=== PATIENT | female | born 1975 | race Caucasian/White ===

== ENCOUNTER 2016-11-13 12:45 | Inpatient (IN) | payer MEDICAID ==
[~2016-11-13] VITALS: Ht 154.9 cm; Wt 72.7 kg
[~2016-11-13 12:45] MED LIST: ACET500C5 PO; ASPI-664 PO; FOL8 PO; PRENAT PO
[2016-11-13 14:07] VITALS: Ht 154.9 cm; Wt 72.7 kg
[2016-11-13 14:08] VITALS: BP 120/87; RESP 18
[2016-11-13] MEDS ORDERED: LACTATED RINGER'S 1,000 ML IV SCH (14:26)
[2016-11-13] MEDS ORDERED: OXYTOCIN 30 UNITS/LR 500 ML IV PRN ×2 (14:30→23:00)
[2016-11-13] MEDS ORDERED: MISOPROSTOL 200 MCG TAB PR PRN ×2 (14:30→23:00)
[2016-11-13] MEDS ORDERED: METHYLERGONOVINE 0.2 MG INJ IM PRN ×2 (14:30→23:00)
[2016-11-13] MEDS ORDERED: CEFAZOLIN 2 GM/50 ML (PMX) 50 ML IV SCH (14:30)
[2016-11-13] MEDS ORDERED: CARBOPROST 250 MCG INJ IM PRN ×2 (14:30→23:00)
[2016-11-13] MEDS ORDERED: OXYTOCIN 30 UNITS/LR 500 ML IV SCH (14:30)
[2016-11-13 14:35] LABS: BASOPHILS % 0.5 % (0.0-2.0); EOSINOPHILS # 0.1 10^3/ul (0.0-0.5); EOSINOPHILS % 1.2 % (0.0-7.0); HEMATOCRIT 37.7 % (37.0-47.0); LYMPHOCYTES # 2.5 10^3/ul (0.8-2.9); LYMPHOCYTES % 30.1 % (15.0-51.0); MEAN CORPUSCULAR HEMOGLOBIN 34.1 pg (29.0-33.0); MEAN CORPUSCULAR HGB CONC 34.4 g/dl (32.0-37.0); MEAN CORPUSCULAR VOLUME 99.2 fl (82.0-101.0); MEAN PLATELET VOLUME 7.6 fl (7.4-10.4); MONOCYTE # 0.7 10^3/ul (0.3-0.9); MONOCYTES % 8.1 % (0.0-11.0); NEUTROPHILS % 60.1 % (39.0-77.0); PLATELET COUNT 226 10^3/UL (140-440); RED CELL DISTRIBUTION WIDTH 13.8 % (11.5-14.5); UNCORRECTED WBC 8.3 10^3/ul (4.8-10.8); WHITE BLOOD COUNT 8.3 10^3/ul (4.8-10.8)
[2016-11-13 14:45] LABS: INR 0.86; PROTIME 11.7 Sec (12.2-14.2); PT RATIO 0.9
[2016-11-13 14:46] LABS: ALBUMIN 3.4 g/dl (3.3-4.9); PARTIAL THROMBOPLASTIN TIME 27.4 Sec (25.0-35.0)
[2016-11-13 14:47] LABS: CONDITION 1; POTASSIUM 4.6 mmol/L (3.5-5.1)
[2016-11-13 14:49] LABS: ALBUMIN/GLOBULIN RATIO 0.87; BILIRUBIN,INDIRECT 0.6 mg/dl (0-1.1); BILIRUBIN,TOTAL 0.6 mg/dl (0.2-1.3); CREATININE 0.68 mg/dl (0.44-1.00); TOTAL PROTEIN 7.3 g/dl (6.1-8.1); URIC ACID 4.3 mg/dl (3.1-7.9)
[2016-11-13 14:50] LABS: CALCIUM 9.5 mg/dl (8.4-10.2)
[2016-11-13] MEDS ORDERED: ONDANSETRON 4 MG INJ IV STA (15:59)
[2016-11-13] MEDS ORDERED: CITRIC ACID/NA CITRATE 30 ML CUP PO ONE (16:00)
[2016-11-13] MEDS ORDERED: morphine SULFATE/PF (10 MG/10 ML) INJ ONE (17:04)
[2016-11-13] MEDS ORDERED: OXYTOCIN 10 UNIT INJ ONE ×2 (17:04→18:02)
[2016-11-13] MEDS ORDERED: PHENYLephrine (100 MCG/ML) 5ML SYG ONE (17:28)
[2016-11-13] MEDS ORDERED: DEXAMETHASONE 4 MG/ML 1 ML INJ ONE (17:45)
[2016-11-13] MEDS ORDERED: ONDANSETRON 4 MG INJ ONE (17:45)
[2016-11-13] MEDS ORDERED: KETOROLAC 30 MG INJ ONE (17:45)
[2016-11-13] MEDS ORDERED: METOCLOPRAMIDE 10 MG INJ ONE (17:45)
[2016-11-13] MEDS ORDERED: ACETAMINOPHEN 500 MG TAB PO PRN (18:00)
[2016-11-13] MEDS ORDERED: NALOXONE (0.4 MG/ML) INJ IV PRN (18:00)
[2016-11-13] MEDS ORDERED: METOCLOPRAMIDE 10 MG INJ IV PRN (18:00)
[2016-11-13] MEDS ORDERED: HYDROmorphONE 1 MG/ML SYG IV PRN ×2 (18:00)
[2016-11-13] MEDS ORDERED: morphine (1 MG/ML) 10ML SYRINGE IV PRN ×3 (18:00)
[2016-11-13] MEDS ORDERED: EPHEDrine SULFATE 50 MG/5 ML SYG IV PRN (18:00)
[2016-11-13] MEDS ORDERED: morphine 2 MG INJ IV PRN (18:00)
[2016-11-13] MEDS ORDERED: ALBUMIN HUMAN 5% 250 ML IV PRN (18:00)
[2016-11-13] MEDS ORDERED: morphine 4 MG/ML VIAL IV PRN (18:00)
[2016-11-13] MEDS ORDERED: DIPHENHYDRAMINE 50 MG INJ IV PRN ×2 (18:00)
[2016-11-13] MEDS ORDERED: ONDANSETRON 4 MG INJ IV PRN (18:00)
[2016-11-13] MEDS ORDERED: HYDROCODONE/APAP (5/325) TAB PO PRN (18:00)
[2016-11-13] MEDS ORDERED: MEPERIDINE 25 MG INJ IV PRN (18:00)
[2016-11-13] MEDS ORDERED: HYDROmorphONE (0.2 MG/ML) 10ML SYG IV PRN ×3 (18:00)
--- NOTE | 2016-11-13 18:25 | HP ---
Date/Time of Note Date/Time of Note DATE: 11/13/16 TIME: 18:20 OB - History Hx of Present Free Text/Dictation admitted for repeat C/S at 38 + weeks because of oligohydramnios Last Menstrual Period: February 20, 2016 Estimated Due Date: Nov 26, 2016 : 4 Para: 3 Care: Good Care Ultrasounds: Normal mid trimester US Obstetrical Complications: Other (elevated inhibin and antiphospholipid syndrome on aspirin ) Medical Complications: Other (previous C/S X 1 ) Past Family/Social History * Past Medical, Surgical, Family and Obstetric Histories reviewed from chart. Blood Type: O+ Rubella: immune RPR/VDRL: Negative GBS Status: Negative HBsAG: Negative OB Admission Exam Vital Signs Vital Signs Vital Signs Date Time Temp Pulse Resp B/P Pulse Ox O2 Delivery O2 Flow Rate FiO2 11/13/16 14:08 98.0 18 120/87 Room Air Physical Exam HEENT: WNL Heart: Rhythm Normal Lungs: Clear, Equal Abdomen: WNL Extremities: Normal Reflexes: Normal Cervical Dilatation: None Effacement: 0% Station: -3 Membranes: Intact Heart Rate: 150's Accelerations: Accelerations Present Decelerations: No Decelerations Varibility: Moderate Contractions on Admission: None Last 72 hours Lab Results CBC & BMP 11/13/16 14:15 Liver Function Test 11/13/16 14:15 Alanine Aminotransferase (ALT/SGPT) 25 Albumin 3.4 Alkaline Phosphatase 257 H Aspartate Amino Transf (AST/SGOT) 26 Direct Bilirubin 0.00 Total Protein 7.3 OB Assessment/Plan Other Assessment: term gestation Oligohydramnios previous C.S X 1 desires sterilization Other plan: repeat C/S + BTL SHARMILA VARGAS MD Nov 13, 2016 18:25
--- NOTE | 2016-11-13 18:28 | OPR ---
Operative Report Planned Procedure Procedure date Nov 13, 2016 Procedure(s) repeat C/S and BTL Performed by: SHARMILA VARGAS MD Assisting provider: CAREY TOVAR MD Anesthesiologist: NAEEM BARRETT MD Pre-procedure diagnosis term gestation previous C/S x 1 desires sterilization Anesthesia Type: spinal Procedure Description Under satisfactory anaesthesia a Pfannenstiel incision was made two fingerbreadth above and parallel to the symphysis of pubis around the previous scar and previous scar was removed Incision was extended laterally to the border of the Recti muscles on either sides. Incision was carried down with sharp and blunt dissection until fascia was reached. Anterior Recti muscle fascia was incised in mid portion and incision extended laterally to the border of skin incision. Fascia was mobilized from muscle superiorly and Recti muscles were from midline using sharp and blunt dissection. Peritoneum was visualized; Avoiding bowel and bladder it was incised . Incision was extended superiorly and inferiorly. Bladder blade was placed. Posterior peritoneum covering the lower segment of the uterus and lower segment of the uterus were incised.Low transverse uterine incision was made on lower segment of the uterus. Incision extended laterally to the border of Round Lig. on either sides and baby was delivered from OT. position . Amniotic fluid appeared clear. Cord blood was obtained and cord had 3 vessels . Placenta was delivered spontaneously and appeared intact and complete. Intrauterine cavity was rubbed with a laparotomy sponge. Uterine incision was closed in 2 layers using running stitches of No1 Monocryl. Hemostasis appeared secure. Ovaries and Fallopian tubes were within normal limits. Bilateral Tubal Ligation was performed by following procedure: R fallopian tube was raised in mid portion; a Jesika clamp was placed below the fimbriae extending to proximal portion of the fallopian tube. Another clamp was placed parallel to the first and after incising the fallopian tube the stump was sutured using 0 Vicryl stitch. Hemostasis was secure . Same procedure was done on fallopian tube on the opposite side. Hemostasis appeared to be secure on ligated sites of either fallopian tubes. Announcing needle, lap sponge and instrument count to be correct abdomen was closed in layers as follows: Peritoneum and Recti muscles with running stitches of 20 Vicryl. Fascia with running stitch of No 1 PDS. Subcutaneous tissue with running stitches of 20 Chromic and skin was closed using flor. Patient tolerated the procedure well and was transferred to [facility] in good condition. Post-Procedure Post-procedure diagnosis reepat C/S + BTL Findings: Live Baby Specimen removed: Yes Specimen description segments of R and L fallopian tube Complications: None Pt Condition post procedure: stable Disposition: PACU Physician Certification I, the undersigned physician, hereby certify that I have discussed the procedure described in this consent form with this patient (or the patient's legal medical claims representative), including: * The risk and benefits of the procedure; * Any adverse reactions that may reasonably be expected to occur; * Any alternative efficacious methods of treatment which may be medically viable ; * The potential problems that may occur during recuperation; * Potential for blood transfusion and associated risks/benefits; and * Any research or economic interest I may have regarding this treatment. I further certify that the patient/legally responsible person was encouraged to ask question and that all questions were answered. SHARMILA VARGAS MD Nov 13, 2016 18:28
[2016-11-13] MEDS: KETOROLAC 30 MG INJ IV PRN (20:12)
--- NOTE | 2016-11-13 21:19 | DELSUM ---
Delivery Summary A-C Datetime Report Generated by CPN: 11/13/2016 21:18 DELIVERY PERSONNEL Benefits Technician: Jennifer, Caitlin MATERNAL INFORMATION Delivery Anesthesia: Spinal Medications in Delivery: SEE ANETHESIOLOGY NOTES Estimated Blood Loss (ml): 500 Placenta Cultured: No Maternal Complications: None LABOR SUMMARY EDC: 11/26/2016 00:00 No. Babies in Womb: 1 Attempted: No Labor Anesthesia: None LABOR INFORMATION Reason for Induction: Not Applicable Cervical Ripening Agents: Cervidil Oxytocin: N/A Group B Beta Strep: Negative Antibiotics # of Doses: 1 Antibiotics Time of Last Dose: 1714 Steroids Given: None Reason Steroids Not Administered: Not Applicable MEMBRANES Membranes Rupture Method: Artificial Rupture of Membranes: 11/13/2016 17:43 Length of Rupture (hr): 0.02 Amniotic Fluid Color: Clear Amniotic Fluid Amount: Small Amniotic Fluid Odor: Normal STAGES OF LABOR Stage 3 hr: 0 Stage 3 min: 2 CSECTION DELIVERY Primary Indication: Repeat Elective Other Primary Indication: REPEAT Secondary Indication: Repeat Elective CSection Urgency: Elective CSection Incidence: Repeat Labor: No Labor Elective: Elective CSection Incision: Lower Uterine Transverse Sterilization Procedure: [place] BABY A INFORMATION Delivery Date/Time: 11/13/2016 17:44 Method of Delivery: Born in Route : No : N/A Forceps: N/A Vacuum Extraction: N/A Shoulder Dystocia : No SHOULDER DYSTOCIA BABY A Delivery Date/Time: 11/13/2016 17:44 PRESENTATION/POSITION BABY A Presentation: Cephalic Cephalic Presentation: Vertex Vertex Position: Left Occipital Anterior Breech Presentation: N/A PLACENTA INFORMATION BABY A Placenta Delivery Time : 11/13/2016 17:46 Placenta Method of Delivery: Manual Removal Placenta Status: Delivered SCORES BABY A Heart Rate 1 min: >100 bpm Resp Effort 1 min: Good Cry Reflex Irritability 1 min: Cough/Sneeze/Pulls Away Muscle Tone 1 min: Active Motion Color 1 min: Blue/Pale Resuscitation Effort 1 min: Tactile Stimulation SCORE 1 MIN: 8 Heart Rate 5 min: >100 bpm Resp Effort 5 min: Good Cry Reflex Irritability 5 min: Cough/Sneeze/Pulls Away Muscle Tone 5 min: Active Motion Color 5 min: Body [place], Extremit Blue Resuscitation Effort 5 min: Tactile Stimulation SCORE 5 MIN: 9 INFORMATION BABY A Gestational Age at Delivery: 38.1 Gestational Status: Early Term- 37- 38.6 Weeks Outcome : Liveborn Condition : Stable Sex: Female IDENTIFICATION/MEDS BABY A ID Band Location: Right Leg; Left Arm Sensor Applied: Yes Sensor Number: [id number] Sensor Location : Cord Clamp Vitamin K Given : Not Given Erythromycin Given: Not Given WEIGHT/LENGTH BABY A Birthweight (gm): 2955 Infant Weight (lb): 6 Infant Weight (oz): 8 Infant Length (in): 18.00 Length (cm): 45.72 CORD INFORMATION BABY A No. Cord Vessels: 3 Nuchal Cord : N/A Cord Blood Taken: Yes Infant Suction: Mouth; Nose ASSESSMENT BABY A Infant Complications: None Physical Findings at Delivery: Within Normal Limits Respirations: Appears Normal Counter Pocket Sewer/ALS Called : No Care By: DERECK STANTON Transferred To: Remains with Mother
[2016-11-13 22:25] VITALS: BP 106/69; PULSE 62
[2016-11-13 22:40] VITALS: BP 115/67; PULSE 66
[2016-11-13] MEDS ORDERED: OXYCODONE/ACETAMINOPHEN (5/325) TAB PO PRN (23:00)
[2016-11-13] MEDS ORDERED: ACETAMINOPHEN/CODEINE #3 TAB PO PRN (23:00)
[2016-11-13] MEDS ORDERED: LANOLIN 7 GM TUBE TOP PRN (23:00)
[2016-11-13] MEDS ORDERED: NA PHOSPHATE/BIPHOS 133 ML ENEMA PR PRN (23:00)
[2016-11-14] MEDS: CEFAZOLIN 2 GM/50 ML (PMX) 50 ML IV SCH ×3 (00:44→16:19)
[2016-11-14] MEDS: CLINDAMYCIN 300 MG CAP PO SCH ×5 (00:49→23:40)
[2016-11-14] MEDS: LACTATED RINGER'S 1,000 ML IV SCH ×4 (00:49→22:49)
--- NOTE | 2016-11-14 01:46 | CONS ---
Date/Time of Note Date/Time of Note DATE: 11/14/16 TIME: 01:44 Consultation Date/Type/Reason Admit Date/Time Nov 13, 2016 at 12:45 Initial Consult Date 11/13/16 Type of Consultation: Anesthesia Reason for Consultation Repeat 24 HR Interval Summary Free Text/Dictation Patient is a 41 year old female went under Spinal Anesthesia for repeat C- Section. Intrathecal Duramorph was given for post op pain control. Patient is doing well, vital signs are stable afebrile. Pain is well controlled, no nausea nor vomiting or itching noted. no apnea reported. No sensory or motor loss noted. Patient will be followed up by her primary team. Exam/Review of Systems Vital Signs Vitals Vital Signs Date Time Temp Pulse Resp B/P Pulse Ox O2 Delivery O2 Flow Rate FiO2 11/13/16 23:25 98 21 11/13/16 22:40 98.2 66 115/67 Room Air 11/13/16 14:08 18 Intake and Output 11/13/16 11/13/16 11/14/16 15:00 23:00 07:00 Intake Total 175 ml Output Total 1200 ml Balance -1025 ml Results Result Diagram: 11/13/16 1415 11/13/16 1415 Results 24 hrs Laboratory Tests Test 11/13/16 14:15 Activated Partial Thromboplast Time 27.4 Alanine Aminotransferase (ALT/SGPT) 25 Albumin 3.4 Albumin/Globulin Ratio 0.87 Alkaline Phosphatase 257 H Anion Gap 14 Aspartate Amino Transf (AST/SGOT) 26 Basophils # 0.0 Basophils % 0.5 Blood Urea Nitrogen 14 Calcium Level 9.5 Carbon Dioxide Level 23 Chloride Level 106 Creatinine 0.68 Direct Bilirubin 0.00 Eosinophils # 0.1 Eosinophils % 1.2 Globulin 3.90 H Glucose Level 75 Hematocrit 37.7 # Hemoglobin 13.0 # INR International Normalized Ratio 0.86 Indirect Bilirubin 0.6 Lymphocytes # 2.5 Lymphocytes % 30.1 Mean Corpuscular Hemoglobin 34.1 H Mean Corpuscular Hemoglobin Concent 34.4 Mean Corpuscular Volume 99.2 Mean Platelet Volume 7.6 Monocytes # 0.7 Monocytes % 8.1 Neutrophils # 5.0 Neutrophils % 60.1 Nucleated Red Blood Cells # 0.0 Nucleated Red Blood Cells % 0.0 Platelet Count 226 Potassium Level 4.6 Prothrombin Time 11.7 L Prothrombin Time Ratio 0.9 Rapid Plasma Reagin NONREACTIVE Red Blood Count 3.80 #L Red Cell Distribution Width 13.8 Sodium Level 138 Total Bilirubin 0.6 Total Protein 7.3 Uric Acid 4.3 White Blood Count 8.3 Medications Medications Current Medications Hydromorphone HCl (Dilaudid) 0.2 mg Q2H PRN IV PAIN LEVEL 1-5; Start 11/13/16 at 18:00 Hydromorphone HCl (Dilaudid) 0.4 mg Q2H PRN IV PAIN LEVEL 6-10; Start 11/13/16 at 18:00 Morphine Sulfate (morphine) 2 mg Q2H PRN IV PAIN LEVEL 1-5; Start 11/13/16 at 18:00 Morphine Sulfate (morphine) 4 mg Q2H PRN IV PAIN LEVEL 6-10; Start 11/13/16 at 18:00 Ketorolac Tromethamine (Toradol) 30 mg Q6H PRN IV PAIN LEVEL 6-10 Last administered on 11/13/16 20:12; Admin Dose 30 MG; Start 11/13/16 at 18:00; Stop 11/16/16 at 17:59 Diphenhydramine HCl (Benadryl) 25 mg Q4H PRN IV PRURITUS; Start 11/13/16 at 18: 00 Naloxone HCl 0.2 mg 0.2 mg Q2M PRN IV FOR RESP RATE 8 OR LESS; Start 11/13/16 at 18:00 Lactated Ringer's 1,000 ml @ 125 mls/hr Q8H IV Last administered on 11/14/16 00:49; Admin Dose 125 MLS/HR; Start 11/13/16 at 22:49 Cefazolin Sodium/ Dextrose (Ancef 2 Gm/50 ml (Pmx)) 50 ml @ 100 mls/hr Q8H IV Last administered on 11/14/16 00:44; Admin Dose 100 MLS/HR; Start 11/13/16 at 23:00; Stop 11/14/16 at 15:29 Ibuprofen (Motrin) 800 mg Q8 PO ; Start 11/14/16 at 22:00 Simethicone (Mylicon) 160 mg Q8H PRN PO DISTENSION/GAS/BLOATING; Start at 23:00 Senna/Docusate Sodium (Senokot-S) 1 tab BID PO ; Start 11/14/16 at 09:00 Sodium Biphosphate/ Sodium Phosphate (Fleet Enema) 133 ml DAILY PRN SD CONSTIPATION; Start 11/13/16 at 23:00 Diphtheria/ Tetanus/Acell Pertussis (Adacel) 0.5 ml ONCE ONCE IM* ; Start at 09:00; Stop 11/16/16 at 09:01 Measles/Mumps/ Rubella Vaccine Live 0.5 ml 0.5 ml ONCE ONCE SC* ; Start at 09:00; Stop 11/16/16 at 09:01 Oxytocin/Lactated Ringer's 500 ml @ 0 mls/hr ONCE PRN IV For Hemorrhage Management; Start 11/13/16 at 23:00 Methylergonovine Maleate (Methergine) 0.2 mg ONCE PRN IM VAGINAL BLEEDING; Start 11/13/16 at 23:00 Carboprost Tromethamine (Hemabate) 250 mcg ONCE PRN IM VAGINAL BLEEDING; Start 11/13/16 at 23:00 Misoprostol (Cytotec) 1,000 mcg ONCE PRN SD VAGINAL BLEEDING; Start 11/13/16 at 23:00 Acetaminophen/ Codeine Phosphate (Tylenol No.3) 2 tab Q4H PRN PO PAIN LEVEL 1-5 ; Start 11/13/16 at 23:00 Oxycodone/ Acetaminophen (Percocet (5/ 325)) 2 tab Q4H PRN PO PAIN LEVEL 6-10; Start 11/13/16 at 23:00 Clindamycin HCl (Cleocin) 300 mg Q6 PO Last administered on 11/14/16t 00:49; Admin Dose 300 MG; Start 11/14/16 at 00:00 Bisacodyl (Dulcolax Supp) 10 mg ONCE ONCE SD ; Start 11/14/16 at 11:00; Stop at 11:01 NAEEM BARRETT MD Nov 14, 2016 01:46
[2016-11-14 04:00] VITALS: BP 108/65; PULSE 68; RESP 18
[2016-11-14 07:45] VITALS: BP 114/66; PULSE 60; RESP 16
[2016-11-14 08:22] LABS: BASOPHILS % 0.2 % (0.0-2.0); HEMATOCRIT 32.5 % (37.0-47.0); HEMOGLOBIN 11.2 g/dl (12.0-16.0); LYMPHOCYTES # 3.4 10^3/ul (0.8-2.9); LYMPHOCYTES % 21.9 % (15.0-51.0); MEAN CORPUSCULAR HEMOGLOBIN 34.6 pg (29.0-33.0); MEAN CORPUSCULAR HGB CONC 34.6 g/dl (32.0-37.0); MEAN PLATELET VOLUME 7.9 fl (7.4-10.4); MONOCYTE # 0.8 10^3/ul (0.3-0.9); MONOCYTES % 5.2 % (0.0-11.0); NEUTROPHIL # 11.1 10^3/ul (1.6-7.5); NEUTROPHILS % 72.7 % (39.0-77.0); PLATELET COUNT 185 10^3/UL (140-440); RED BLOOD COUNT 3.25 10^6/ul (4.20-5.40); RED CELL DISTRIBUTION WIDTH 13.5 % (11.5-14.5); UNCORRECTED WBC 15.3 10^3/ul (4.8-10.8); WHITE BLOOD COUNT 15.3 10^3/ul (4.8-10.8)
[2016-11-14 08:34] LABS: CONDITION 1
[2016-11-14] MEDS: SENNA/DOCUSATE NA (8.6MG/50MG) TAB PO SCH ×2 (09:01→21:07)
[2016-11-14] MEDS ORDERED: BISACODYL 10 MG SUPP PR ONE (11:00)
[2016-11-14] MEDS: KETOROLAC 30 MG INJ IV PRN ×2 (11:29→17:29)
[2016-11-14 11:30] VITALS: BP 105/62; PULSE 68; RESP 18
[2016-11-14 16:00] VITALS: BP 108/69; PULSE 70; RESP 16
[2016-11-14 20:10] VITALS: BP 100/64; PULSE 73; RESP 18
[2016-11-14] MEDS: IBUPROFEN 800 MG TAB PO SCH (23:32)
--- NOTE | 2016-11-14 23:48 | PN ---
Date/Time of Note Date/Time of Note DATE: 11/14/16 TIME: 23:46 Assessment/Plan VTE Prophylaxis VTE Prophylaxis Intervention: ambulation Lines/Catheters IV Catheter Type (from Nrs): Peripheral IV Assessment/Plan Assessment/Plan POD # 1 S/P C/S and BTL will advance diet and ambulate Subjective 24 Hr Interval Summary No BM passing flatus Exam/Review of Systems Vital Signs Vitals Vital Signs Date Time Temp Pulse Resp B/P Pulse Ox O2 Delivery O2 Flow Rate FiO2 11/14/16 20:10 98.0 73 18 100/64 Room Air 11/14/16 12:48 97 21 Intake and Output 11/13/16 11/13/16 11/14/16 15:00 23:00 07:00 Intake Total 175 ml 425 ml Output Total 1400 ml 300 ml Balance -1225 ml 125 ml Exam Free Text/Dictation VSS general P/E is WNL abdomen: soft BS + Incision : covered Results Result Diagram: 11/14/16 0725 11/13/16 1415 SHARMILA VARGAS MD Nov 14, 2016 23:48
[2016-11-15 03:54] VITALS: BP 106/70; PULSE 61; RESP 16
[2016-11-15] MEDS: CLINDAMYCIN 300 MG CAP PO SCH ×3 (05:47→18:51)
[2016-11-15] MEDS: IBUPROFEN 800 MG TAB PO SCH ×3 (05:47→21:25)
[2016-11-15] MEDS: LACTATED RINGER'S 1,000 ML IV SCH ×3 (06:49→22:49)
[2016-11-15 08:10] VITALS: BP 115/71; PULSE 65; RESP 16
[2016-11-15 08:16] LABS: BASOPHILS % 0.2 % (0.0-2.0); EOSINOPHILS # 0.1 10^3/ul (0.0-0.5); EOSINOPHILS % 0.8 % (0.0-7.0); HEMATOCRIT 29.9 % (37.0-47.0); HEMOGLOBIN 10.3 g/dl (12.0-16.0); LYMPHOCYTES # 2.9 10^3/ul (0.8-2.9); LYMPHOCYTES % 28.9 % (15.0-51.0); MEAN CORPUSCULAR HEMOGLOBIN 34.7 pg (29.0-33.0); MEAN CORPUSCULAR HGB CONC 34.2 g/dl (32.0-37.0); MEAN CORPUSCULAR VOLUME 101.3 fl (82.0-101.0); MEAN PLATELET VOLUME 7.5 fl (7.4-10.4); MONOCYTE # 0.7 10^3/ul (0.3-0.9); MONOCYTES % 6.5 % (0.0-11.0); NEUTROPHIL # 6.4 10^3/ul (1.6-7.5); NEUTROPHILS % 63.6 % (39.0-77.0); PLATELET COUNT 183 10^3/UL (140-440); RED BLOOD COUNT 2.96 10^6/ul (4.20-5.40); RED CELL DISTRIBUTION WIDTH 13.9 % (11.5-14.5); UNCORRECTED WBC 10.1 10^3/ul (4.8-10.8); WHITE BLOOD COUNT 10.1 10^3/ul (4.8-10.8)
[2016-11-15 08:41] LABS: CONDITION 1; LH ANALYZER COMMENTS 1
[2016-11-15] MEDS ORDERED: INFLUENZA VIRUS VACCINE 0.5 ML (DISPENSING) IM* ONE (09:00)
[2016-11-15] MEDS: SENNA/DOCUSATE NA (8.6MG/50MG) TAB PO SCH ×2 (09:19→21:25)
[2016-11-15 15:50] VITALS: BP 121/85; PULSE 65; RESP 16
--- NOTE | 2016-11-15 18:47 | DS ---
Date/Time of Note Date/Time of Note home next day DATE: 11/15/16 TIME: 18:45 Obstetrical Discharge Record Final Diagnosis Final Diagnosis: Term delivered Other Final Diagnosis S/P C/S + BTL Vaginal Delivery Obstetrical Delivery: Bilateral Tubal Ligation Section Section: Repeat Condition on Discharge Physical Assessment Voiding: Yes Bowel Movement: Yes Breast: Soft, non-tender, Filling Fundus: Firm Abdomen and Incision: soft BS + Incision: healing well Episiotomy: NA Calf Tenderness: No Patient Condition: Good SHARMILA VARGAS MD Nov 15, 2016 18:47
--- NOTE | 2016-11-15 18:49 | DS ---
Date/Time of Note Date/Time of Note DATE: 11/15/16 TIME: 18:47 Discharge Summary Admission/Discharge Info Admit Date/Time Nov 13, 2016 at 12:45 Discharge Date/Time 11/16/2016 Final Diagnosis S/P C/ S+ BTL Procedures repeat C/S and BTL Hx of Present Illness 41 y/o female underwent repeat C/S + BTL Hospital Course uncomplicated Home Meds Active Scripts Acetaminophen* (Tylophen*) 500 Mg Capsule, 1 CAP PO Q6H Y for PAIN AND OR ELEVATED TEMP, #20 CAP Prov:KAILEY STEWART PA-C 08/08/16 Reported Medications Folic Acid* (Folic Acid*) 0.8 Mg Tablet, 0.8 MG PO DAILY, TAB 08/08/16 Aspirin* (Aspirin* EC) 81 Mg Tablet.dr, 81 MG PO DAILY, TAB 08/08/16 Multivit/Min/Fol Ac/Iron/Pren* ( S*) 1 Tab Tab, 1 TAB PO DAILY, TAB 08/08/16 Follow-up Plan 4 days in clinic for staple removal Pending Labs Laboratory Tests Test 11/15/16 07:16 Basophils # 0.010^3/ul (0.0-0.1) Basophils % 0.2% (0.0-2.0) Blood Morphology Comment Eosinophils # 0.110^3/ul (0.0-0.5) Eosinophils % 0.8% (0.0-7.0) Hematocrit 29.9% (37.0-47.0) Hemoglobin 10.3g/dl (12.0-16.0) Lymphocytes # 2.910^3/ul (0.8-2.9) Lymphocytes % 28.9% (15.0-51.0) Mean Corpuscular Hemoglobin 34.7pg (29.0-33.0) Mean Corpuscular Hemoglobin Concent 34.2g/dl (32.0-37.0) Mean Corpuscular Volume 101.3fl (82.0-101.0) Mean Platelet Volume 7.5fl (7.4-10.4) Monocytes # 0.710^3/ul (0.3-0.9) Monocytes % 6.5% (0.0-11.0) Neutrophils # 6.410^3/ul (1.6-7.5) Neutrophils % 63.6% (39.0-77.0) Nucleated Red Blood Cells # 0.010^3/ul (0.0-0.0) Nucleated Red Blood Cells % 0.0/100WBC (0.0-0.0) Platelet Count 91725^3/UL (140-440) Red Blood Count 2.9610^6/ul (4.20-5.40) Red Cell Distribution Width 13.9% (11.5-14.5) White Blood Count 10.110^3/ul (4.8-10.8) SHARMILA VARGAS MD Nov 15, 2016 18:49
--- NOTE | 2016-11-15 18:52 | PD.PPDC ---
CUSTOMER SUPPLY CHAIN ANALYST Discharge Instruction Provider Information Physician Information 41 y/o female had repeat C/S + BTL Diagnosis Final Diagnosis: S/P C/S + BTL Condition Patient Condition: Good Diet Diet: Resume Regular Diet Activity/Restrictions Activity: February Shower Restrictions: No Exercising No Lifting Nothing in the Vagina Return to Work or School: Jan 15, 2017 Follow-up Follow-up with Physician: 4, Day/Days Provider Information: in clinic for staple removal Return to clinic for COURT DEPUTY Instructions: Fever greater than 101 Chills Excessive Vaginal Bleeding OB Instructions: Breast Tenderness Depression Surgical Instructions: Incisional Drainage Incisional Redness SHARMILA VARGAS MD Nov 15, 2016 18:52
[2016-11-15] MEDS ORDERED: IBUP800T25 PO (18:54)
[2016-11-15] MEDS ORDERED: Oxycodone/Acetamin (5/325) PO (18:54)
[2016-11-15 19:45] VITALS: BP 112/67; PULSE 68; RESP 19
[2016-11-16 03:36] VITALS: BP 109/71; PULSE 72; RESP 20
[2016-11-16] MEDS: IBUPROFEN 800 MG TAB PO SCH (05:34)
[2016-11-16] MEDS: CLINDAMYCIN 300 MG CAP PO SCH ×2 (05:36)
[2016-11-16 07:55] VITALS: BP 98/60; PULSE 68; RESP 18
[2016-11-16] MEDS ORDERED: DIPHTH/TET/ACEL PERTUSS (ADULT) 0.5 ML VIAL IM* ONE (09:00)
[2016-11-16] MEDS ORDERED: MEASLES,MUMPS,RUBELLA VACCINE INJ SC* ONE (09:00)
[2016-11-16] MEDS: SENNA/DOCUSATE NA (8.6MG/50MG) TAB PO SCH (09:12)
== END 2016-11-16 12:20 | disposition home or self-care (01) | DRG 765 ==
LOC: L-D 12:45 → PP1 22:26
PROVIDERS: ADMIT Obstetrics & Gynecology; ATTEND Obstetrics & Gynecology
PROC: 0UB70ZZ Excision of Bilateral Fallopian Tubes, Open Approach (ICD-10-PCS; 2016-11-13)
PROC: 10D00Z1 Extraction of Products of Conception, Low, Open Approach (ICD-10-PCS; principal; 2016-11-13 17:00)
PROC: 3E0234Z Introduction of Serum, Toxoid and Vaccine into Muscle, Percutaneous Approach (ICD-10-PCS; 2016-11-15)
DX: O34.211 Maternal care for low transverse scar from previous cesarean delivery (principal); O41.03X0 Oligohydramnios, third trimester, not applicable or unspecified; Z30.2 Encounter for sterilization; Z23 Encounter for immunization; Z3A.38 38 weeks gestation of pregnancy; Z37.0 Single live birth
CPT/HCPCS: 80053; 84560; 85025; 85610; 85730; 86592; 86850; 86900; 86901; 88302; 90686; 90715; 94760; 99464; J0690; J1100; J1885; J2274; J2370; J2405; J2590; J2765; J7120

== ENCOUNTER 2017-08-16 10:17 | Emergency (ER) | payer MEDICAID ==
[~2017-08-16] VITALS: Ht 160 cm; Wt 68.5 kg
[~2017-08-16 10:17] MED LIST changes: -ACET500C5 PO; -ASPI-664 PO; -FOL8 PO; +IBUP800T25 PO; +Oxycodone/Acetamin (5/325) PO
[2017-08-16 10:27] VITALS: Ht 160 cm; Wt 68.5 kg
[2017-08-16 11:51] LABS: URINE BLOOD (Dip) POC 2+ (NEGATIVE)
[2017-08-16] MEDS ORDERED: HYDROCODONE/APAP (5/325) TAB PO ONE (12:00)
--- NOTE | 2017-08-16 12:48 | RADRPT ---
PROCEDURE: XR Lumbar Spine. CLINICAL INDICATION: Low back pain. TECHNIQUE: Three views of the lumbar spine are available for review COMPARISON: None available FINDINGS: There is straightening of normal lumbar lordosis. Alignment is intact. No acute fracture or disloc ation is seen. The vertebral body heights are preserved. There are mild degenerative changes of lumbar spine mainly at L5-S1. IMPRESSION: 1. No acute fracture or dislocation. 2. Mild discogenic disease mainly at L5-S1. 3. Straightening of the normal lumbar lordosis. RPTAT: HH .Bisi Calzada MD, MD Date Time Electronically viewed and signed by .Bisi Calzada MD, on 08/16/2017 12:47 .N/
[2017-08-16] MEDS ORDERED: CYCL-319 PO (13:22)
--- NOTE | 2017-08-16 15:05 | ERD ---
ER Documentation Chief Complaint Chief Complaint lower back pain since yesterday HPI 42-year-old female presents with a chief complaint of low back pain 1 day. Worse with movement. 8 out of 10 when moving. No radiation. Has not taken medications to relieve the pain. Patient denies trauma, saddle paraesthesia, incontinence, urinary retention, RPND, or pain exacerbated by valsalva. Denies fever, chills, night sweats, weight loss, or increase symptoms at night. Patient also denies history of HIV, drug use or recent surgery Patient has no other complaints and describes no other associated manifestations. Nursing notes have been reviewed and are consistent with history given. ROS All systems reviewed and are negative except as per history of present illness. Medications Home Meds Active Scripts Cyclobenzaprine Hcl* (Cyclobenzaprine Hcl*) 10 Mg Tablet, 10 MG PO TID, #15 TAB Prov:LOIS RICHARDSON PA-C 08/16/17 [Oxycodone/Acetamin (5/325)] 1 TAB TAB No Conflict Check, 2 TAB PO Q4H Y for PAIN LEVEL 6-10, #30 0 Refills Prov:SHARMILA VARGAS MD 11/15/16 Ibuprofen* (Ibuprofen*) 800 Mg Tablet, 800 MG PO Q8, #20 TAB 0 Refills Prov:SHARMILA VARGAS MD 11/15/16 Reported Medications Multivit/Min/Fol Ac/Iron/Pren* ( S*) 1 Tab Tab, 1 TAB PO DAILY, TAB 08/08/16 Allergies Allergies: Coded Allergies: No Known Allergy (Unverified , 08/08/16) PMhx/Soc History of Surgery: No Anesthesia Reaction: No Hx Neurological Disorder: No Hx Respiratory Disorders: No Hx Cardiac Disorders: No (HTN) Hx Psychiatric Problems: No Hx Miscellaneous Medical Probl: No Hx Alcohol Use: No Hx Substance Use: No Hx Tobacco Use: No Physical Exam Vitals Physical Exam Const: Well-appearing. Mild distress. Back: No midline, flank or CVA tenderness. Negative straight leg raise. Range of motion decreased secondary to pain. Neur: No saddle anesthesia. Neurovascularly intact bilaterally. Head: Normocephalic, Atraumatic. Eyes: Non-injected; No discharge. EOMI and BECCA bilaterally. Ears: Normal External Ears, EACs clear, TM normal bilaterally without erythema. Nose: Normal external nose; no discharge, or sinus tenderness. Oral: No oral edema visualized. Mucous membranes moist and pink. Neck: No tenderness. No cervical lymphadenopathy, or masses palpated. Supple ~ No meningismus. Pulm: Good air movement in upper and lower respiratory tracts. Clear to auscultation bilaterally. No dyspnea or stridor. Cardio: Regular rate and rhythm; No murmurs, gallops or rubs auscultated. Radia pulses 2+ bilaterally. No cyanosis noted. Capillary refill less than 2 seconds. Abd: Normal bowel sounds. Soft, non tender, non distended. MS: Normal motor strength, normal tone with gross examination. Skin: No petechiae or rashes. Good turgor. Ext: No edema. Normal movement of all extremities grossly observed. Psych: Normal Mood and Affect. Results 24 hrs Laboratory Tests Test 08/16/17 11:53 Bedside Urine pH (LAB) 5.5 Bedside Urine Protein (LAB) Negative Bedside Urine Glucose (UA) Negative Bedside Urine Ketones (LAB) Negative Bedside Urine Blood 2+ Bedside Urine Nitrite (LAB) Negative Bedside Urine Leukocyte Esterase (L Negative Current Medications Medications (Trade) Dose Ordered Sig/Raudel Route PRN Reason Start Time Stop Time Status Last Admin Dose Admin Acetaminophen/ Hydrocodone Bitart ([place] (5/325)) 1 tab ONCE ONCE PO 08/16/17 12:00 08/16/17 12:01 DC 08/16/17 11:51 Procedures/MDM 42-year-old female presents with a chief complaint of back pain that is worse with movement 1 day. Denies trauma. X-ray was obtained, read by the radiologist, given the following impression: 1. No acute fracture or dislocation. 2. Mild discogenic disease mainly at L5-S1. 3. Straightening of the normal lumbar lordosis. I have no suspicion for acute bony pathology or neurovascular compromise. Most likely diagnosis is lumbar strain versus sprain versus paraspinal muscle spasm. Have recommended conservative therapy along with Flexeril. I have spoke with the patient regarding their condition and future management. They have verbally responded that they understand their status and treatment plan. The patients vitals are stable, and their current condition is appropriate for discharge. The patient will be given discharge instructions with return precautions. Departure Diagnosis: Primary Impression: Back pain Back pain location: low back pain Chronicity: acute Back pain laterality: unspecified Sciatica presence: without sciatica Qualified Code: M54.5 - Acute low back pain without sciatica, unspecified back pain laterality Condition: Stable Patient Instructions: Back Pain (Acute Or Chronic) Additional Instructions: Follow up with your PCP within the next 1-3 days for a more thorough evaluation and a possible referral to a specialist. Return the the emergency department immediately if symptoms worsen or change. If you have any questions regarding medications, ask your pharmacist or us before you leave. If any adverse reactions occur while taking your medications, discontinue the treatment and return to the emergency department immediately. Take your medications as directed, and complete the entire course of treatment. LOIS RICHARDSON PA-C Aug 16, 2017 15:05 medications, ask your pharmacist or us before you leave. If any adverse reactions occur while taking your medications, discontinue the treatment and return to the emergency department immediately. Take your medications as directed, and complete the entire course of treatment. LOIS RICHARDSON PA-C Aug 16, 2017 15:05
== END 2017-08-16 13:37 | disposition home or self-care (01) ==
LOC: FTE 10:17
DX: M54.5 Low back pain (principal); I10 Essential (primary) hypertension
CPT/HCPCS: 72100; 81003; Z7610

== ENCOUNTER 2019-04-25 18:46 | Emergency (ER) | payer MEDICAID ==
[~2019-04-25] VITALS: Ht 165.1 cm; Wt 70.6 kg
[~2019-04-25 18:46] MED LIST changes: +CYCL10TA7 PO; +IBUP-1544 PO; -IBUP800T25 PO
[2019-04-25 18:59] VITALS: Ht 165.1 cm; Wt 70.6 kg
[2019-04-25] MEDS ORDERED: KETOROLAC 30 MG INJ IM STA (21:45)
[2019-04-25] MEDS ORDERED: CYCL10TA7 PO (21:48)
[2019-04-25] MEDS ORDERED: NAPR-985 PO (21:48)
--- NOTE | 2019-04-25 21:59 | ERD ---
ER Documentation Chief Complaint Chief Complaint BACK PAIN X TODAY. HPI This is a 44-year-old otherwise healthy female who presents with atraumatic back pain since 10 AM this morning. Patient states she has 2 kids and does a lot of bending down picking up toys. She reports 8/10 pain to her mid lower lumbar region. Pain is worse with movement, better when sitting or laying down. She took Aleve without any relief. She states she had similar pain about a year and a half ago. Lumbar x-ray at that time was negative. She denies any fevers or chills. Denies loss of bowel or bladder control. Denies bilateral lower extremity numbness. Denies HIV or drug use. ROS All systems reviewed and are negative except as per history of present illness. Medications Home Meds Active Scripts Naproxen* (Naprosyn*) 500 Mg Tablet, 500 MG PO BID PRN for PAIN AND/OR INFLAMMATION, #30 TAB Prov:BEATRICE GUZMÁN PA-C 04/25/19 Cyclobenzaprine Hcl* (Cyclobenzaprine Hcl*) 10 Mg Tablet, 10 MG PO TID, #15 TAB Prov:BEATRICE GUZMÁN PA-C 04/25/19 Cyclobenzaprine Hcl* (Cyclobenzaprine Hcl*) 10 Mg Tablet, 10 MG PO TID, #15 TAB Prov:LOIS RICHARDSON PA-C 08/16/17 [Oxycodone/Acetamin (5/325)] 1 TAB TAB No Conflict Check, 2 TAB PO Q4H PRN for PAIN LEVEL 6-10, #30 0 Refills Prov:SHARMILA VARGAS MD 11/15/16 Ibuprofen* (Ibuprofen*) 800 Mg Tablet, 800 MG PO Q8, #20 TAB 0 Refills Prov:SHARMILA VARGAS MD 11/15/16 Reported Medications Multivit/Min/Fol Ac/Iron/Pren* ( S*) 1 Tab Tab, 1 TAB PO DAILY, TAB 08/08/16 Allergies Allergies: Coded Allergies: No Known Allergy (Unverified , 08/08/16) PMhx/Soc Medical and Surgical Hx: pt denies Medical Hx History of Surgery: No Anesthesia Reaction: No Hx Neurological Disorder: No Hx Respiratory Disorders: No Hx Cardiac Disorders: No (HTN) Hx Psychiatric Problems: No Hx Miscellaneous Medical Probl: No Hx Alcohol Use: No Hx Substance Use: No Hx Tobacco Use: No Physical Exam Vitals Vital Signs Date Temp Pulse Resp B/P (MAP) Pulse Ox O2 O2 Flow FiO2 Time Delivery Rate 04/25/19 98.5 78 16 128/81 100 18:59 (97) Physical Exam Const: No acute distress Head: Atraumatic Eyes: Normal Conjunctiva ENT: Normal External Ears, Nose and Mouth. Neck: Full range of motion. No meningismus. Resp: Clear to auscultation bilaterally Cardio: Regular rate and rhythm, no murmurs Abd: Soft, non tender, non distended. Normal bowel sounds Skin: No petechiae or rashes Back: + Mild tenderness to SI joint. Negative straight leg raise. Motor strength 5/5 bilaterally. Sensation grossly intact. Ext: No cyanosis, or edema Neur: Awake and alert Psych: Normal Mood and Affect Results 24 hrs Current Medications Medications Dose Sig/Raudel Start Time Status Last (Trade) Ordered Route PRN Stop Time Admin Dose Reason Admin Ketorolac 30 mg ONCE STAT 04/25/19 DC Tromethamine IM 21:45 04/25/19 (Toradol) 21:46 20 mg ONCE ONCE 04/25/19 Cyclobenzapri PO 22:00 04/25/19 ne HCl 22:01 (Flexeril) Procedures/MDM ED COURSE: The patient was given Flexeril, Toradol IM The medication was well tolerated and the patient had market improvement in symptoms. The patient remained stable throughout ED course. MEDICAL DECISION MAKIN-year-old presents with atraumatic back pain. There are no focal neurological deficits on physical exam. She had an lumbar x-ray 07/2017 that showed some mild DJD of the L5/S1 otherwise unremarkable. Further imaging was deferred today as symptoms are likely musculoskeletal in origin, likely muscle spasm. I have low suspicion for epidural abscess, cauda equina, cord compression, spinal tumor/mass or compression fracture. Patient will be treated conservatively with appropriate pain control. Follow up with PCP in 1 week, otherwise return to the ED for any new or worsening symptoms. PRESCRIPTIONS: Cyclobenzaprine, naproxen SPECIALIST FOLLOW UP RECOMMENDED: Ortho Departure Diagnosis: Primary Impression: Muscle spasm of back Condition: Stable Patient Instructions: Muscle Spasm Referrals: [facility] 7 a.m.- 11 p.m. Every Day of the Week NO APPOINTMENT OR AUTHORIZATION NEEDED Additional Instructions: Take the medication as needed for pain. I am also given your referral to an orthopedic center that you can see if you continue to have the same pain. Return here for any new or worsening symptoms, otherwise follow-up with your regular doctor in the next few days. BEATRICE GUZMÁN PA-C Apr 25, 2019 21:59
[2019-04-25] MEDS ORDERED: CYCLOBENZAPRINE 10 MG TAB PO ONE (22:00)
[2019-04-25 22:13] VITALS: BP 125/76; PULSE 88; RESP 16
== END 2019-04-25 22:18 | disposition home or self-care (01) ==
LOC: FTE 18:46
DX: M62.830 Muscle spasm of back (principal); I10 Essential (primary) hypertension
CPT/HCPCS: 81025; J1885; Z7610; 96372